=== PATIENT | male | born 1985 | race African-American/Black ===

== ENCOUNTER 2016-09-18 22:58 | Emergency (ER) | payer SELFPAY ==
[~2016-09-18] VITALS: Ht 180.3 cm; Wt 77.1 kg
[2016-09-18 23:18] VITALS: BP 117/77
[2016-09-18] MEDS ORDERED: THIAMINE HCL 100 MG/ML 2ML VIAL IM ONE (23:30)
== END 2016-09-19 00:02 | disposition left against medical advice (07) ==
LOC: ER 22:58
DX: F10.129 Alcohol abuse with intoxication, unspecified (principal); G92 Toxic encephalopathy